=== PATIENT | male | born 1965 | race Caucasian/White ===

== ENCOUNTER 2023-03-06 17:44 | Emergency (ER) | payer BC, SELFPAY ==
[2023-03-06 18:09] VITALS: BP 169/92; PULSE 100; RESP 18; TEMP 36.9; O2SAT 98; BMI 28.8
--- NOTE | 2023-03-06 18:15 | ED_ITS ---
HPI - General Adult General Chief complaint: Upper Respiratory Symptoms <DONA Griffith - Last Filed: 03/13/23 09:36> Stated complaint: sore throat,swollen glands <DONA Griffith - Last Filed: 03/13/23 09:36> Time Seen by Provider: 03/06/23 20:43 <DONA Griffith - Last Filed: 03/13/23 09:36> Source: patient <Chuckie Okeefe MD - Last Filed: 03/06/23 20:57> Mode of arrival: ambulatory <Chuckie Okeefe MD - Last Filed: 03/06/23 20:57> Limitations: no limitations <Chuckie Okeefe MD - Last Filed: 03/06/23 20:57> History of Present Illness HPI narrative: 57-year-old male with history of hypertension presents with complaints of right-sided throat pain. Symptoms started today. Describes them as moderate to severe in nature. There is associated difficulty swallowing but no difficulty breathing. He has had no fevers or chills. No cough or mucus production. Pose no postnasal drip. He denies any sick contacts. Symptoms are worse with swallowing. There better with rest. <Chuckie Okeefe MD - Last Filed: 03/06/23 20:57> Related Data Home medications: Previous Rx's Medication Instructions Recorded amoxicillin 875 mg-potassium 1 tab PO BID #20 tabs 03/06/23 clavulanate 125 mg tablet <DONA Griffith - Last Filed: 03/13/23 09:36> Allergies/adverse reactions: Allergies Allergy/AdvReac Type Severity Reaction Status Date / Time No Known Allergies Allergy Unverified 08/13/20 15:25 [No Known Allergies*] <DONA Griffith - Last Filed: 03/13/23 09:36> [facility] Social History Social History: Social History Alcohol intake: current Alcohol intake frequency: holidays/special occasions only Smoked in Last 30 Days: No Use of substances other than those prescribed or required for medical reasons: No Advance Directives: No Advance Directives Information Provided: No <DONA Griffith Last Filed: 03/13/23 09:36> Physical Exam ED Vital Signs: Vital Signs - 24 hr 03/06/23 18:09 Temperature 98.4 F Pulse Rate 100 Respiratory Rate 18 Blood Pressure 169/92 H Pulse Oximetry 98 Oxygen Delivery Method Room Air BMI result Body Mass Index 28.8 <DONA Griffith - Last Filed: 03/13/23 09:36> Vital Signs - 24 hr 03/06/23 18:09 Temperature 98.4 F Pulse Rate 100 Respiratory Rate 18 Blood Pressure 169/92 H Pulse Oximetry 98 Oxygen Delivery Method Room Air BMI result Body Mass Index 28.8 <Chuckie Okeefe MD - Last Filed: 03/06/23 20:57> GEN: Well developed, no acute distress, alert, oriented HEENT: Normocephalic, atraumatic, normal external ears, nose appears normal, mild right-sided or pharyngeal swelling and erythema, noted uvular deviation no definite peritonsillar abscess, no tenderness the parotid gland Eyes: Normal to appearance Neck: Supple, slight right-sided lymphadenopathy subcentimeter, mobile and mildly tender particularly at the angle of the mandible Respiratory: Talks in complete sentences, no respiratory distress Extremities: No clubbing cyanosis or edema Neurologic: No focal neurologic deficits, cranial nerves 2-12 intact, gait normal Skin: No rash <Chuckie Okeefe MD - Last Filed: 03/06/23 20:57> Course Course Course Narrative: RME: 57 yold male presents to the ED for sore throat starting today. Physical exam positive for swollen tonsils. negative for signs of [employer]. STrep and SARS ordered <DONA Griffith - Last Filed: 03/13/23 09:36> Reevaluation(s) Reevaluation #1: Serology is negative for viral infection and strep pharyngitis. However, he has no additional symptoms, would recommend starting Augmentin and a dose steroids given the severity of symptoms. He has been instructed to make sure he keeps himself appropriately hydrated. For any worsening or concerning symptoms he was instructed to return immediately to the emergency department. There is no definite [employer] on examination. There is no indication for emergent imaging at this time. However, should his symptoms worsen, I would have a low threshold to do a alternative studies. <Chuckie Okeefe MD - Last Filed: 03/06/23 20:57> Time: 20:56 <Chuckie Okeefe MD - Last Filed: 03/06/23 20:57> Medications Administered Discontinued Medications Generic Name Dose Route Start Last Admin Trade Name Freq PRN Reason Stop Dose Admin Amoxicillin/Clavulanate Potassium 875 mg 03/06/23 20:51 03/06/23 21:02 Amoxicillin/Potassium Clav 875 Mg Tablet PO 03/06/23 20:52 875 mg ONCE ONE Administration Dexamethasone 10 mg 03/06/23 20:51 03/06/23 21:02 Dexamethasone 2 Mg Tablet PO 03/06/23 20:52 10 mg ONCE ONE Administration <DONA Griffith - Last Filed: 03/13/23 09:36> Medications Administered Discontinued Medications Generic Name Dose Route Start Last Admin Trade Name Freq PRN Reason Stop Dose Admin Amoxicillin/Clavulanate Potassium 875 mg 03/06/23 20:51 03/06/23 21:02 Amoxicillin/Potassium Clav 875 Mg Tablet PO 03/06/23 20:52 875 mg ONCE ONE Administration Dexamethasone 10 mg 03/06/23 20:51 03/06/23 21:02 Dexamethasone 2 Mg Tablet PO 03/06/23 20:52 10 mg ONCE ONE Administration <Chuckie Okeefe MD - Last Filed: 03/06/23 20:57> Medical Decision Making Medical Decision Making [facility] Narrative: 57-year-old male with hypertension presents with right-sided throat pain. Examination revealed mild erythematous changes and slight asymmetry. There is no uvular deviation. There is no definite [employer]. This is most likely strep pharyngitis given if a lack of additional symptoms. Will give patient a dose of oral steroids and antibiotics. Discharge instructions were discussed with the patient. Aware of reasons to return to the emergency department. <Chuckie Okeefe MD - Last Filed: 03/06/23 20:57> Differential Diagnosis Differential Diagnoses: The differential diagnosis associated with the presentation includes (Viral pharyngitis, strep pharyngitis, peritonsillar abscess, parotitis, lymphadenopathy) <Chuckie Okeefe MD - Last Filed: 03/06/23 20:57> Lab Data [facility] Lab Attestation statement: I reviewed the patient's lab results. <Chuckie Okeefe MD - Last Filed: 03/06/23 20:57> Labs: Lab Results 03/06/23 03/06/23 Range/Units 18:21 18:22 Influenza Type A (PCR) NEGATIVE (Negative) Influenza Type B (PCR) NEGATIVE (Negative) RSV RNA Qual (PCR) NEGATIVE (Negative) SARS-CoV-2 RNA (RT-PCR) NEGATIVE (Negative) S. pyogenes GrpA LOGAN Negative (Negative) <DONA Griffith - Last Filed: 03/13/23 09:36> Lab Results 03/06/23 03/06/23 Range/Units 18:21 18:22 Influenza Type A (PCR) NEGATIVE (Negative) Influenza Type B (PCR) NEGATIVE (Negative) RSV RNA Qual (PCR) NEGATIVE (Negative) SARS-CoV-2 RNA (RT-PCR) NEGATIVE (Negative) S. pyogenes GrpA LOGAN Negative (Negative) <Chuckie Okeefe MD - Last Filed: 03/06/23 20:57> Independent Historian Clinical information obtained from an independent historian. History obtained from or confirmed by: Spouse <Chuckie Okeefe MD - Last Filed: 03/06/23 20:57> Prescription Management I considered prescription management with: Pain Medication and Antibiotic <Chuckie Okeefe MD - Last Filed: 03/06/23 20:57> Chronic Conditions Patient?s care impacted by: Hypertension <Chuckie Okeefe MD - Last Filed: 03/06/23 20:57> Discharge Plan Discharge Clinical Impression: Pharyngitis <DONA Griffith - Last Filed: 03/13/23 09:36> Patient Disposition: Home, Self-Care <DONA Griffith - Last Filed: 03/13/23 09:36> Instructions: Pharyngitis (ED) <DONA Griffith - Last Filed: 03/13/23 09:36> Additional Instructions: You were seen today with right-sided throat pain and neck pain. On my ev aluation you had some slight lymphadenopathy on the right side of her neck. Additionally, there is a very slight asymmetry and erythema/redness to the right side of your throat. We have started you on Augmentin. We have provided you 1 dose of dexamethasone 10 mg orally. He will continue Augmentin twice a day for the next 10 days. Should he develop worsening and uncontrolled pain, difficulty swallowing or breathing, changes in voice, please seek attention immediately in the emergency department. <DONA Griffith - Last Filed: 03/13/23 09:36> Prescriptions: New amoxicillin-pot clavulanate 875-125 mg tablet 1 tab PO BID Qty: 20 0RF <DONA Griffith - Last Filed: 03/13/23 09:36> Referrals: Saqib Cao [Physician] - 3 days <DONA Griffith - Last Filed: 03/13/23 09:36> Interventions: ED Discharge Assessment Last Done: 03/06/23 21:07 <DONA Griffith - Last Filed: 03/13/23 09:36> Discharge Date/Time: 03/06/23 21:08 <DONA Griffith - Last Filed: 03/13/23 09:36>
[2023-03-06 18:39] LABS: IDNOW Serial# 08D9AD1C; Strep A Nucleic Acid Negative (Negative)
[2023-03-06 19:06] LABS: Influenza A PCR NEGATIVE (Negative); Influenza B PCR NEGATIVE (Negative); Resp Syncy Virus RNA Qual PCR NEGATIVE (Negative); SARS COV2 PCR INHOUSE NEGATIVE (Negative)
[2023-03-06] MEDS: Amoxicillin/Potassium Clav 875 MG TABLET PO (21:02)
[2023-03-06] MEDS: dexAMETHasone 2 MG TABLET 10 MG PO (21:02)
== END 2023-03-06 21:08 | disposition home or self-care (01) ==
PROVIDERS: Emergency Provider Emergency Medicine
DX: J02.8 Acute pharyngitis due to other specified organisms (principal); Z20.822 Contact with and (suspected) exposure to COVID-19; Z20.828 Contact with and (suspected) exposure to other viral communicable diseases
CPT/HCPCS: 0241U; 87651; 99283; 99284; J8540